=== PATIENT | female | born 1980 | race African-American/Black ===

== ENCOUNTER 2017-02-02 09:03 | Inpatient (IN) | payer OTHER ==
[2017-02-02] VITALS (34 sets, daily range): BP systolic 99–132; BP diastolic 52–80
[~2017-02-02] VITALS: Ht 157.5 cm; Wt 95.0 kg
[2017-02-02] MEDS ORDERED: PRENTAB9 PO (09:28)
[2017-02-02] MEDS ORDERED: LR 1,000 ML IV SCH (10:39)
[2017-02-02] MEDS ORDERED: miSOPROStol 50 MCG 1/2 TAB (S0191) PO ONE (10:45)
[2017-02-02 11:38] LABS: MEAN CORPUSCULAR HEMOGLOBIN 33.8 pg (27.0-33.0); MEAN CORPUSCULAR HGB CONC 33.5 g/dl (32.0-36.5); MEAN CORPUSCULAR VOLUME 100.9 fl (80.0-96.0); RED CELL DISTRIBUTION WIDTH 13.9 % (11.5-14.5); WHITE BLOOD COUNT 6.9 K/mm3 (4.0-10.0)
[2017-02-02] MEDS ORDERED: OXYTOCIN 30 UNITS IN 0.9% NaCl 500ML IV BAG (J2590) As Ordered ONE (13:01)
[2017-02-02] MEDS ORDERED: OXYTOCIN DRIP 30 UNITS in APPROPRIATE DILUENT 1 EA IV SCH (13:15)
[2017-02-02] MEDS ORDERED: FENTANYL 2MCG/ML ROPIVACAINE 0.2% IN 0.9% NACL 200ML IVBAG As Ordered ONE (15:31)
[2017-02-02] MEDS ORDERED: ePHEDrine SULFATE 25 MG/5 ML(5MG/ML) SYRINGE IV PRN (16:15)
[2017-02-02] MEDS ORDERED: LACTATED RINGER'S 1000 ML IV PRN (16:15)
[2017-02-02] MEDS ORDERED: NALOXONE INJ 0.4 MG/1 ML VIAL (J2310) IV PRN (16:15)
[2017-02-02] MEDS ORDERED: ONDANSETRON 4MG/2ML VIAL (J2405) IV PRN (16:15)
[2017-02-02] MEDS ORDERED: REFRIGERATOR IV KEYS XX PRN (16:15)
[2017-02-02] MEDS ORDERED: diphenhydrAMINE INJ 50MG/ML VIAL (J1200) IV PRN (16:15)
[2017-02-02] MEDS ORDERED: EPIDURAL/PCA KEYS XX PRN (16:15)
[2017-02-02] MEDS ORDERED: FENTANYL/ROPIVACAINE/NACL BAG 200 ML EPIDURAL SCH (16:15)
[2017-02-02] MEDS ORDERED: EPIDURAL COMMENT XX SCH (16:15)
[2017-02-02] MEDS ORDERED: METHYLERGONOVINE MALEATE 0.2 MG TAB PO PRN (21:00)
[2017-02-02] MEDS ORDERED: ANUSOL HC CREAM 30GM TOP PRN (21:00)
[2017-02-02] MEDS ORDERED: RHOGAM 300 MCG (1500 IU) INJ (J2790) IM SCH (21:00)
[2017-02-02] MEDS ORDERED: MOM 30ML SUSPENSION UDC PO PRN (21:00)
[2017-02-02] MEDS ORDERED: MEASLES,MUMPS,RUBELLA VACCINE INJ (MMR-II) (90707) SC SCH (21:00)
[2017-02-02] MEDS ORDERED: DIBUCAINE 1% OINTMENT 30GM TOP PRN (21:00)
[2017-02-02] MEDS ORDERED: DOCUSATE SODIUM 100 MG CAP PO PRN (21:00)
[2017-02-02] MEDS ORDERED: ACETAMINOPHEN 500 MG TAB PO PRN (21:00)
[2017-02-02 21:06] LABS: CORD GAS ABE A -2.3; CORD GAS HCO3 A 26.1 MEQ/L; CORD GAS O2 SAT A 33.5 %; CORD GAS PCO2 A 61.3 mmHg; CORD GAS PH A 7.247 UNITS; CORD GAS PO2 A 17.5 mmHg; CORD GAS SBC A 21.2 MEQ/L
[2017-02-02 21:09] LABS: CORD GAS HCO3 V 20.7 MEQ/L; CORD GAS O2 SAT V 71.2 %; CORD GAS PH V 7.322 UNITS; CORD GAS PO2 V 34.3 mmHg; CORD GAS SBC V 19.8 MEQ/L
--- NOTE | 2017-02-02 21:56 | HPE ---
DATE OF ADMISSION: 02/02/2017 This lady is a 35-year-old 3, para 1, abortus 0, LMP 04/22/2016, EDC 01/27/2017, is at 40 and 6 weeks of gestation, was booked for induction of labor today at 1500 hours. Came in with contractions and a nonreassuring heart strip. Her past history is in 2013 at 40 weeks, spontaneous vaginal delivery, induction of labor, 8 pounds 9 ounces male. In 2015, spontaneous at 8 weeks with medical induction which failed and required a dilatation and curettage (D and C). Her risk factors are she has a marginal insertion of the cord and her BMI is 38 and she is post dates. LABORATORY DATA: O+, HIV negative, hepatitis negative, RPR negative, rubella immune. Varicella immune. Pap normal. Urine negative. Gonorrhea and chlamydia are negative. Her early 1-hour glucose was 111. Her 1-hour GTT at 28 weeks was 105. GBS negative. Quad screen negative. CF was negative. On examination no acute distress. Symphysis fundus height is 40, vertex OA, posterior, multiparous, os thick, -3 station, lots of mucus noted, and category two strip. Blood pressure 99/56, respirations 18, pulse 82, temperature 97.7. Urine is 1.015, pH 6, negative, negative, negative. The rest of the examination is unremarkable. She is normocephalic, atraumatic. Neck full range of motion. Pupils equal and reactive to light. Distal pulses symmetric. No evidence of DVT, PE or superficial phlebitis. No wheezes or rhonchi. Chest is clear bilaterally to bases. No CVA tenderness. Uterus is nontender. Appropriate symphysis fundus height. Four quadrant bowel sounds are noted. She has no rashes, lesions or pruritus. No arthralgia, myalgia. No complaints of cough, wheezes, shortness of breath or dyspnea on exertion. No chest pain. No bleeding. Neurologically complete. No incontinency, urgency, or frequency. No nausea, vomiting, diarrhea or constipation. No diabetic issues. 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 Past medical and surgical history unremarkable. Family history noncontributory. She does not smoke, drink or abuse drugs. There is no domestic violence. She is to a soldier. In summary we have a late term gestation, booked for induction of labor, came in because of contractions, has nonreassuring heart tones. Our plan of management is to do the induction of labor with Cytotec. Risks and benefits were discussed with the patient. Epidural as needed. Hydration and diet control. Safe to proceed.
[2017-02-03] MEDS ORDERED: OXYTOCIN INJ 10 UNITS/ML VIAL (J2590) IV ONE (00:45)
[2017-02-03] MEDS: IBUPROFEN 800 MG TAB PO PRN ×2 (00:55→21:52)
[2017-02-03 06:33] VITALS: BP 96/60
[2017-02-03 07:32] LABS: MEAN CORPUSCULAR HEMOGLOBIN 34.2 pg (27.0-33.0); MEAN CORPUSCULAR HGB CONC 33.7 g/dl (32.0-36.5); MEAN CORPUSCULAR VOLUME 101.4 fl (80.0-96.0); RED CELL DISTRIBUTION WIDTH 13.9 % (11.5-14.5); WHITE BLOOD COUNT 13.3 K/mm3 (4.0-10.0)
[2017-02-03] MEDS: PRENATAL VITAMINS CHEWABLE TABLET PO SCH (07:55)
--- NOTE | 2017-02-03 17:52 | DN ---
DATE: 02/02/2017 This lady is a 4 admitted for initially a nonreassuring heart strip and occasional contractions. She was booked for induction of labor because being post dates. Because of the nonreassuring heart strip, we elected to the use Pitocin as opposed to Cytotec, and she had runs of moderate variability and then runs of decreased variability, but no evidence to suggest any late decelerations. She eventually got an epidural because of increased pains, was examined and found to 5-6 cm. Artificial rupture of membranes was draining meconium stained liqua. We notified neonatology regarding this and she got fully dilated and pushed over an intact perineum a live female infant weighing 3226 grams, of 7 and 9 at 1 of 5 minutes, respectively. Dr. Zhou in attendance for resuscitation. The placenta had a marginal insertion of cord and therefore we waited for spontaneous delivery of the placenta. We examined the placenta and it was found to be intact, including the marginal insertion, three vessels. Arterial and venous pH were performed. Uterus contracted well under Pitocin. We evaluated the perineum, the lateral tran, the anterior-posterior and the sphincter all was intact. The uterus contracted well under Pitocin. The patient and baby tolerating the procedure well. The weight in pounds and ounces was 7 pounds 2 ounces. The patient and baby tolerating procedure well.
[2017-02-03 18:00] VITALS: BP 118/63
--- NOTE | 2017-02-03 22:09 | IPN ---
DATE: 02/03/2017 This lady is a 35-year-old 3, para 1 was admitted for induction of labor at post-term with nonreassuring heart tones. She eventually delivered a live female infant 7 pounds 2 ounces, of 7 and 9 and one and five minutes [address]. Dr. Zhou was in attendance for resuscitation because of thick meconium. Arterial pH 7.24, base excess -2.3, venous pH 7.32, base excess -5.0. Her admitting hemoglobin was 12.0, hematocrit 35.9, platelets were 258. Day one hemoglobin is still pending. Her vitals today: Blood pressure is 96/60, respirations 16, pulse 53, temperature 96.7. On her second postoperative day we discussed phlebitis, cystitis, mastitis, metritis, cellulitis, diet, exercise, pain management, perineal, breast, and wound care. She is uncertain as to what she wants to use for control. Will use condoms as a method for now and discuss other methods at her 6-week checkup. In summary, we have a late term delivered live female in good condition under the lights at present because of bilirubin issues. The patient is planning on discharge tomorrow. Medications were given.
[2017-02-04 04:29] VITALS: BP 114/65
[2017-02-04] MEDS: PRENATAL VITAMINS CHEWABLE TABLET PO SCH (07:27)
[2017-02-04] MEDS ORDERED: ACET50TA PO (11:20)
[2017-02-04] MEDS ORDERED: IBUP-1114 PO (11:21)
[2017-02-04] MEDS ORDERED: MOM30SS PO (11:25)
[2017-02-04] MEDS ORDERED: ANUS2.5C2 TOP (11:25)
[2017-02-04] MEDS ORDERED: NUPE1OIN2 TOP (11:25)
[2017-02-04] MEDS ORDERED: COLA100C5 PO (11:25)
--- NOTE | 2017-02-05 10:36 | DSES ---
DATE OF ADMISSION: DATE OF DISCHARGE: 02/04/2017 This lady is a 36-year-old 3 now para 3 admitted for induction of labor post date for non-reassuring heart tones. She had a spontaneous vaginal delivery of female 7 pounds 2 ounces. Arterial pH was 7.24, base excess -2.3, venous pH 7.32, base excess -5.0. Dr. Almodovar in attendance because of meconium. The patient had a marginal insertion the cord and her BMI is over 38. Today we discussed phlebitis, cystitis, mastitis, endometritis and cellulitis, side effects, exercise pain management, perineal, breast and wound care. Admitting hemoglobin 12.0, hematocrit 35.9, platelets 258. Discharge hemoglobin 10.9, hematocrit 30.3, platelets 222. Her vital signs on discharge blood pressure 114/65, respiration 18, pulse 73 and temperature 97.9. The rest of the examination unremarkable. She is normocephalic, atraumatic. Neck full range of motion. Pupils equal and reactive to light. Distal pulses symmetric. No evidence of deep vein thrombosis (DVT), pulmonary embolus (PE) or superficial phlebitis. Chest is clear bilaterally bases. No wheezes or rhonchi. No CVA tenderness. Uterus two below. Lochia is moderate. Perineum is intact. Four quadrant bowel sounds are noted. No rashes, lesions or pruritus. No arthralgia, myalgia. No complaints of cough, wheezes, shortness of breath or dyspnea on exertion. No chest pain. Not bleeding. Neuro complete. No incontinency, urgency or frequency. No nausea, vomiting, diarrhea, constipation. No diabetic issues. 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 She does not smoke or drink abuse drugs. She is . There is no domestic violence In summary, we have an advanced maternal age, delivered a live female infant discharged to followup in six weeks' time in the office for check. Presently going to use condoms for control.
== END 2017-02-04 11:40 | disposition home or self-care (01) | DRG 774 ==
LOC: M LDO 09:03 → M LDI 10:22 → M OBS 22:13
PROVIDERS: ADMIT Obstetrics & Gynecology; ATTEND Obstetrics & Gynecology
PROC: 10E0XZZ Delivery of Products of Conception, External Approach (ICD-10-PCS; principal; 2017-02-02)
PROC: 10907ZC Drainage of Amniotic Fluid, Therapeutic from Products of Conception, Via Natural or Artificial Opening (ICD-10-PCS; 2017-02-02)
DX: O76 Abnormality in fetal heart rate and rhythm complicating labor and delivery (principal); O44.23 Partial placenta previa NOS or without hemorrhage, third trimester; O48.0 Post-term pregnancy; Z3A.40 40 weeks gestation of pregnancy; O77.0 Labor and delivery complicated by meconium in amniotic fluid; Z37.0 Single live birth